=== PATIENT | female | born 1945 | race Caucasian/White ===

== ENCOUNTER 2024-01-22 11:44 | Inpatient (IN) | payer OTHER ==
[~2024-01-22] VITALS: Ht 157.5 cm; Wt 59.8 kg
[~2024-01-22 11:44] MED LIST: HYDR50TA47 PO; TIMO0.5S28 EACHEYE
[2024-01-22 13:30] VITALS: BP 207/104; PULSE 85; PULSE 89; RESP 18; TEMP 98.7; O2SAT 96
[2024-01-22] MEDS ORDERED: MORPHINE SULFATE INJ 2 MG/ml SYRG IV PRN ×2 (13:45→14:00)
[2024-01-22] MEDS ORDERED: NITROGLYCERIN 0.4 MG SL TAB SL PRN (13:45)
[2024-01-22 14:18] LABS: Basophils # (auto) 0 10 ^3/uL (0-0.2); Basophils % (auto) 0.2 % (0.0-2.0); Eosinophils # (auto) 0 10 ^3/uL (0-0.8); Eosinophils % (auto) 0.1 % (0.0-7.0); Hematocrit 37.2 % (36.0-46.0); Hemoglobin 12.7 g/dL (12.2-16.2); Lymphocytes # (auto) 0.6 10 ^3/uL (0.4-5.4); Mean Corpuscular Hemoglobin 30.9 pg (28.0-32.0); Mean Corpuscular Hgb Conc. 34.1 g/dL (32.0-36.0); Mean Corpuscular Volume 90.7 fL (80.0-100.0); Monocytes # (auto) 0.4 10 ^3/uL (0-1.3); Monocytes % (auto) 3.7 % (0.0-12.0); Neutrophils # (auto) 10.2 10 ^3/uL (1.6-8.6); Nucleated Red Blood Cells % 0.1 %; Platelet Count (auto) 296 10^3/uL (140-450); Red Cell Distribution Width 13.4 % (11.8-14.3); White Blood Cell 11.2 10^3/uL (4.4-10.8)
[2024-01-22] MEDS ORDERED: CLON0.1T PO (14:30)
[2024-01-22] MEDS ORDERED: LOSA-535 PO (14:30)
[2024-01-22] MEDS ORDERED: LISI40TA16 PO (14:30)
[2024-01-22 14:36] LABS: Alanine Aminotransferase 13 U/L (7-40); Albumin 4.9 g/dL (3.2-4.8); Alkaline Phosphatase 103 U/L (46-116); Anion Gap 8 (5-15); Aspartate Aminotransferase 16 U/L (13-40); BUN/Creatinine Ratio 11.5 (10.0-20.0); Bilirubin, Total 0.6 mg/dL (0.2-1.0); Blood Urea Nitrogen 11 mg/dL (9-23); Calcium 9.9 mg/dL (8.7-10.4); Carbon Dioxide 26 mmol/L (20-31); Chloride 106 mmol/L (98-107); Glucose 154 mg/dL (74-106); Lipase 34 U/L (12-53); Potassium 3.8 mmol/L (3.5-5.1); Sodium 140 mmol/L (136-145); Total Protein 7.1 g/dL (5.7-8.2)
[2024-01-22 14:55] LABS: Triglycerides 91 mg/dL (< 150)
[2024-01-22 14:56] LABS: LDL Cholesterol 108 mg/dL (< 100)
[2024-01-22] MEDS: ONDANSETRON HCL 4 MG/2 ML VIAL IV PRN (14:56)
[2024-01-22 14:57] LABS: Cholesterol 169 mg/dL (< 200); HDL Cholesterol 45 mg/dL (40-59)
[2024-01-22] MEDS ORDERED: hydrALAZINE HCL 20 MG/ML VL IV ONE (15:15)
[2024-01-22] MEDS: ENALAPRILAT 1.25 MG/ML-1ML VIAL IV PRN (15:29)
[2024-01-22 16:35] VITALS: BP 208/115; PULSE 93; RESP 16; TEMP 98.9; O2SAT 94
[2024-01-22] MEDS: cloNIDine HCL 0.1 MG TAB PO SCH ×2 (17:15→22:06)
[2024-01-22 18:15] LABS: Urine Bacteria None Seen /hpf (None Seen)
[2024-01-22 18:29] LABS: Urine Blood Negative /uL (Negative); Urine Clarity Clear (Clear); Urine Color Colorless (Yellow); Urine Protein, UAD TRACE (Negative); Urine Urobilinogen Normal (Negative); Urine WBC 7 /hpf (0 - 5); Urine pH 7.5 (5.0-9.0)
[2024-01-22 18:38] LABS: COVID19 ANTIGEN SOFIA FIA NEGATIVE (NEGATIVE)
[2024-01-22] MEDS: ENOXAPARIN SOD 60 MG/0.6 ML SYRINGE SC SCH (18:44)
[2024-01-22 20:00] VITALS: PULSE 112; PULSE 94; RESP 18; O2SAT 94
[2024-01-22] MEDS ORDERED: ENALAPRILAT 1.25 MG/ML-1ML VIAL IV PRN (21:15)
[2024-01-22 22:00] VITALS: BP 216/113; PULSE 94; RESP 18; TEMP 99.1; O2SAT 94
[2024-01-22] MEDS: ATORVASTATIN 20 MG TAB PO SCH (22:00)
[2024-01-22] MEDS ORDERED: cloNIDine HCL 0.1 MG TAB PO SCH ×3 (22:00)
[2024-01-22] MEDS: PANTOPRAZOLE 40 MG/10 ML VIAL INJ IV SCH (22:12)
[2024-01-22] MEDS: hydrALAZINE HCL 20 MG/ML VL IV ONE (22:42)
[2024-01-22] MEDS: SODIUM CHLORIDE 0.9% 1,000 ML IV SCH (22:56)
[2024-01-23] VITALS (8 sets, daily range): BP systolic 96–197; BP diastolic 54–98; PULSE 65–111; RESP 16–18; TEMP 98.1–99; O2SAT 94–98
--- NOTE | 2024-01-23 00:34 | DVHHP2 ---
Admitting Diagnosis: Chest pain, status post fall History of Present Illness History Source: Patient Exam Limitations: No limitations HPI Mrs. Liberty Aguilera is a 78 yo female with a history of hypertension. Patient [place] [facility] [place] Patient had presented at [facility] [place] with a chief complaint of blood in stool status post fall x 1 week ago. Patient was found to have positive troponin levels, elevated blood pressure. Patient had reported during her fall she hit her head on the floor and the following day she had a second fall which she fell on her left side. Patient CT head wo contrast resulted : no acute intracranial abnormality, Chest x ray: no acute intrathoracic abnormality. bilateral lower lobe atelectasis. Troponin levels 0.030 x2, 0.050, 0.120. Patient denies chest pain, dyspnea, headaches, dizziness, blurry vision, abdominal pain, diarrhea, constipation, dysuria, hematuria, melena. Home Meds Reported Medications Lisinopril (Lisinopril) 40 Mg Tab, 40 MG PO DAILY for 30 Days, MG 01/22/24 Clonidine Hydrochloride (Clonidine Hcl) 0.1 Mg Tab, 0.1 MG PO BID for 30 Days, MG 01/22/24 Losartan Potassium (Losartan Potassium) 100 Mg Tab, 100 MG PO DAILY for 30 Days, MG 01/22/24 Past Medical History Cardiac: HTN Pulmonary: No pertinent Hx Central Nervous System: No pertinent Hx GI: No pertinent Hx Hemotology/Oncology: No pertinent Hx Hepatobiliary: No pertinent Hx Psychiatric: No pertinent Hx Musculoskeletal: No pertinent Hx Rheumotologic: No pertinent Hx Infectious Disease: No peritnent Hx ENT: No pertinent Hx Renal/: No pertinent Hx Endocrine: No pertinent Hx Dermatology: No pertinent Hx Patient Family History: Patient reports no known family medical history. Smoker: No Hx (Negative) Alocohol: None Drugs: None Domestic Violence: Neg Review of Systems Constitutional: No symptom reported Ears, Nose, & Throat: No symptom reported Eyes: No symptom reported Pulmonary/Respiratory: No symptom reported Cardiovascular: No symptom reported Gastrointestinal: No symptom reported Genitourinary: No symptom reported Musculoskeletal: No symptom reported Skin: No symptom reported Psychiatric: No symptom reported Endocrine: No symptom reported Hemotologic/Lymphatic: No symptom reported H&P Exam Vital Signs Vital Signs Date Time Temp Pulse Resp B/P (MAP) Pulse Ox O2 Delivery O2 Flow Rate FiO2 11/2/24 23:06 148/72 01/22/24 22:00 99.1 94 18 94 99.1 01/22/24 13:30 Room Air* 0 21 General Appeara: Well developed, Well nourished, Normal Appearance Head Exam: Normal inspection Neck Exam: Normal inspection, Non-tender, Normal alignment Eye Exam: bilateral eye Normal inspection, bilateral eye PERRL, bilateral eye EOMI Ear Exam: bilateral ear Auricle normal Nasal Exam: Normal inspection Mouth: Normal Inspection Pulmonary/Respiratory: Normal inspection, Normal breath sounds, Chest non- tender, Lungs clear Cardiovascular/Chest: Normal inspection, Regular rate, Normal Rhythm Peripheral Pulses: 2+ dorsalis pedis (R), 2+ dorsalis pedis (L), 2+ Radial (R), 2+ Radial (L) Abdominal Exam: Normal bowel sounds, Soft, No tenderness Rectal Exam: Deferred [employer] Exam: Normal hearing, Normal speech, PERRL Neuro/Mental St: Alert, Oriented Appearance: Appropriate appearance, Appropriate insight Eye contact/ Speech: Cooperative, Good eye contact, Normal speech Thoughts/Psych: Normal thought pattern Skin Exam: Normal inspection, Normal color, Warm/dry Labs/Xrays Labs Test 01/22/24 18:15 01/22/24 18:00 01/22/24 17:53 01/22/24 14:05 Range/Units SARS-CoV-2 Antigen (Rapid) Negative NEGATIVE Urine Color Colorless Yellow Urine Clarity Clear Clear Urine pH 7.5 5.0-9.0 Urine Specific [place] 1.010 1.001-1.035 Urine Protein Trace H Negative Urine Ketones 1+ H Negative Urine Blood Negative Negative /uL Urine Nitrite Negative Negative Urine Bilirubin Negative Negative Urine Urobilinogen Normal Negative mg/dL Urine Leukocyte Esterase 1+ Negative /uL Urine RBC 4 0 - 4 /hpf Urine WBC 7 0 - 5 /hpf Urine Squamous Epithelial Cells Few <5 /hpf Urine Bacteria None seen None Seen /hpf Urine Glucose 3+ H Normal mg/dL Troponin I High Sensitivity 216 *H </=34 ng/L White Blood Count 11.2 H 4.4-10.8 10^3/uL Red Blood Count 4.10 4.0-5.20 10^6/uL Hemoglobin 12.7 12.2-16.2 g/dL Hematocrit 37.2 36.0-46.0 % Mean Corpuscular Volume 90.7 80.0-100.0 fL Mean Corpuscular Hemoglobin 30.9 28.0-32.0 pg Mean Corpuscular Hemoglobin Concent 34.1 32.0-36.0 g/dL Red Cell Distribution Width 13.4 11.8-14.3 % Platelet Count 296 140-450 10^3/uL Mean Platelet Volume 8.9 6.9-10.8 fL Neutrophils (%) (Auto) 91.0 H 37.0-80.0 % Lymphocytes (%) (Auto) 5.0 L 10.0-50.0 % Monocytes (%) (Auto) 3.7 0.0-12.0 % Eosinophils (%) (Auto) 0.1 0.0-7.0 % Basophils (%) (Auto) 0.2 0.0-2.0 % Neutrophils # (Auto) 10.2 H 1.6-8.6 10 ^3/uL Lymphocytes # (Auto) 0.6 0.4-5.4 10 ^3/uL Monocytes # (Auto) 0.4 0-1.3 10 ^3/uL Eosinophils # (Auto) 0 0-0.8 10 ^3/uL Basophils # (Auto) 0 0-0.2 10 ^3/uL Nucleated Red Blood Cells 0.1 % Sodium Level 140 136-145 mmol/L Potassium Level 3.8 3.5-5.1 mmol/L Chloride Level 106 98-107 mmol/L Carbon Dioxide Level 26 20-31 mmol/L Anion Gap 8 5-15 Blood Urea Nitrogen 11 9-23 mg/dL Creatinine 0.96 0.550-1.02 mg/dL Glomerular Filtration Rate Calc 61 >90 mL/min BUN/Creatinine Ratio 11.5 10.0-20.0 Serum Glucose 154 H 74-106 mg/dL Hemoglobin A1c 6.0 H <5.7 % A1C Calcium Level 9.9 8.7-10.4 mg/dL Total Bilirubin 0.6 0.2-1.0 mg/dL Aspartate Amino Transferase (AST) 16 13-40 U/L Alanine Aminotransferase (ALT) 13 7-40 U/L Alkaline Phosphatase 103 46-116 U/L Total Protein 7.1 5.7-8.2 g/dL Albumin 4.9 H 3.2-4.8 g/dL Triglycerides Level 91 < 150 mg/dL Cholesterol Level 169 < 200 mg/dL LDL Cholesterol 108 H < 100 mg/dL HDL Cholesterol 45 40-59 mg/dL Lipase 34 12-53 U/L Assessment/Plan Problem List: (1) NSTEMI (non-ST elevated myocardial infarction) (2) Hypertension Plan 78 yo female with known history of hypertension presents to the hospital as a transfer [place] [facility] [place]. 1. NSTEMI 2. Hypertension 3. UTI Admit Telemetry Cardiology consultation, echocardiogram Lovenox 1m/kg SC every 12 hours Lipitor , ASA Serial troponin levels IV antibiotic Ceftriaxone Discussed all above with patient who verbalized agreement and understanding of care plan. All questions were answered. Discussed assessment and care plan with supervising MD. Plan discussed with: Patient, Other Code Visit Code Visit Total Time (mins): 45 Additional Comments Additional Comments Additional Comments Patient is evaluated by nurse practitioner. Patient seen by me as well and chart is reviewed. I agree with the nurse practitioner's evaluation, documentation, assessment and care plan as outlined. MARIANN MILLARD Jan 23, 2024 00:34 CECILIA BLAND MD Jan 23, 2024 16:19
[2024-01-23 07:50] LABS: Basophils # (auto) 0 10 ^3/uL (0-0.2); Basophils % (auto) 0.3 % (0.0-2.0); Eosinophils # (auto) 0 10 ^3/uL (0-0.8); Eosinophils % (auto) 0.4 % (0.0-7.0); Hematocrit 32.3 % (36.0-46.0); Lymphocytes # (auto) 1.4 10 ^3/uL (0.4-5.4); Mean Corpuscular Hemoglobin 31.1 pg (28.0-32.0); Mean Corpuscular Hgb Conc. 34.2 g/dL (32.0-36.0); Mean Corpuscular Volume 91.1 fL (80.0-100.0); Monocytes % (auto) 8.9 % (0.0-12.0); Neutrophils # (auto) 8.5 10 ^3/uL (1.6-8.6); Neutrophils % (auto) 77.4 % (37.0-80.0); Nucleated Red Blood Cells % 0.1 %; Platelet Count (auto) 293 10^3/uL (140-450); Red Blood Cells 3.55 10^6/uL (4.0-5.20); Red Cell Distribution Width 13.4 % (11.8-14.3)
[2024-01-23 08:03] LABS: INR 1.05 (0.9-1.15); Partial Thromboplastin Time 29.1 SEC (24.5-34.5); Prothrombin Time 11.1 sec (9.3-11.8)
[2024-01-23 08:10] LABS: Alanine Aminotransferase 13 U/L (7-40); Albumin 4.1 g/dL (3.2-4.8); Alkaline Phosphatase 87 U/L (46-116); Anion Gap 9 (5-15); Aspartate Aminotransferase 16 U/L (13-40); BUN/Creatinine Ratio 14.9 (10.0-20.0); Blood Urea Nitrogen 20 mg/dL (9-23); Calcium 9.5 mg/dL (8.7-10.4); Carbon Dioxide 25 mmol/L (20-31); Chloride 105 mmol/L (98-107); Glucose 103 mg/dL (74-106); Potassium 3.5 mmol/L (3.5-5.1); Sodium 139 mmol/L (136-145)
[2024-01-23 08:11] LABS: Bilirubin, Total 0.6 mg/dL (0.2-1.0); Total Protein 6.2 g/dL (5.7-8.2)
[2024-01-23] MEDS ORDERED: ENOXAPARIN SOD 40 MG/0.4 ML SYRINGE SC SCH (10:00)
[2024-01-23] MEDS ORDERED: LOSARTAN POTASSIUM 50 MG TAB PO SCH ×2 (10:00)
[2024-01-23] MEDS: LISINOPRIL 20 MG TAB PO SCH (10:12)
[2024-01-23] MEDS: ASPirin 81 mg TAB PO SCH (10:12)
[2024-01-23 13:08] LABS: Lipase 36 U/L (12-53)
[2024-01-23] MEDS ORDERED: ENALAPRILAT 1.25 MG/ML-1ML VIAL IV PRN (15:45)
[2024-01-23] MEDS ORDERED: hydrALAZINE HCL 20 MG/ML VL IV PRN (15:45)
--- NOTE | 2024-01-23 18:16 | DVHINCON2 ---
Date of service: Jan 23, 2024 History of Present Illness 78 yo F with hx of HTN ,[place] [facility] [place] pt had chest pain on wednesday and sever htn above 200, then pt had a fall and after this fall had 3 blback b owel movements. she feels the black BM is 2/2 to her fall however. ecg showed diffuse st depression Past Medical History reviewed Family History: Patient reports no known family medical history. Allergies: Coded Allergies: Penicillins (Verified Allergy, Mild, 01/22/24) Home Meds Reported Medications Lisinopril (Lisinopril) 40 Mg Tab, 40 MG PO DAILY for 30 Days, MG 01/22/24 Clonidine Hydrochloride (Clonidine Hcl) 0.1 Mg Tab, 0.1 MG PO BID for 30 Days, MG 01/22/24 Losartan Potassium (Losartan Potassium) 100 Mg Tab, 100 MG PO DAILY for 30 Days, MG 01/22/24 Current Medications Current Medications Medications (Trade) Dose Ordered Sig/Rafy Route PRN Reason Start Time Stop Time Status Last Admin Pantoprazole Sodium (Protonix) 40 mg BID IV 01/22/24 22:00 01/23/24 10:12 Enoxaparin Sodium (Lovenox) 40 mg DAILY SC 01/23/24 10:00 01/22/24 15:45 DC Aspirin 81 mg DAILY PO 01/23/24 10:00 01/23/24 10:12 Atorvastatin Calcium (Lipitor) 40 mg HS PO 01/22/24 22:00 Clonidine HCl (Catapres Tablet) 0.2 mg BID PO 01/22/24 22:00 01/22/24 17:11 DC Losartan Potassium (Cozaar Tablet) 100 mg DAILY PO 01/23/24 10:00 01/23/24 16:00 DC Lisinopril (Zestril Tablet) 40 mg DAILY PO 01/23/24 10:00 01/23/24 15:45 DC 01/23/24 10:12 Clonidine HCl (Catapres Tablet) 0.2 mg BID PO 01/22/24 22:00 Cancel Losartan Potassium (Cozaar Tablet) 100 mg DAILY PO 01/23/24 10:00 01/22/24 18:36 DC Clonidine HCl (Catapres Tablet) 0.1 mg BID PO 01/22/24 22:00 01/22/24 21:18 DC Clonidine HCl (Catapres Tablet) 0.1 mg TID PO 01/22/24 22:00 01/23/24 14:25 Enalaprilat (Vasotec Injection) 5 mg Q4HR PRN IV SPB >150 01/22/24 21:15 01/23/24 15:42 DC Sodium Chloride 1,000 ml @ 75 mls/hr [id number] IV 01/22/24 21:30 01/22/24 22:56 Nicardipine HCl 250 ml @ 50 mls/hr Q5H IV 01/22/24 22:00 01/22/24 23:38 DC Enalaprilat (Vasotec Injection) 2.5 mg Q6HP PRN IV SBP>160 01/23/24 15:45 01/23/24 15:45 DC Losartan Potassium (Cozaar Tablet) 50 mg BID PO 01/23/24 22:00 Hydralazine HCl (Apresoline Injection) 10 mg Q6HP PRN IV SBP>150 01/23/24 15:45 Minoxidil (Loniten Tablet) 5 mg HS PO 01/23/24 22:00 Amlodipine Besylate (Norvasc Tablet) 10 mg DAILY PO 01/24/24 10:00 UNV Review of Systems 10 pt ros otherwise negative Vital Signs Vital Signs Date Time Temp Pulse Resp B/P (MAP) Pulse Ox O2 Delivery O2 Flow Rate FiO2 01/23/24 17:00 98.1 88 17 174/88 (116) 95 98.1 01/23/24 08:00 Room Air* 0 21 Physical Exam nad s1 s2 rrr ctab soft nt/nd no edema Labs/Diagnostic Data Labs Test 01/23/24 06:19 01/23/24 06:15 01/22/24 18:15 01/22/24 18:00 Range/Units White Blood Count 11.0 H 4.4-10.8 10^3/uL Red Blood Count 3.55 L 4.0-5.20 10^6/uL Hemoglobin 11.0 L 12.2-16.2 g/dL Hematocrit 32.3 #L 36.0-46.0 % Mean Corpuscular Volume 91.1 80.0-100.0 fL Mean Corpuscular Hemoglobin 31.1 28.0-32.0 pg Mean Corpuscular Hemoglobin Concent 34.2 32.0-36.0 g/dL Red Cell Distribution Width 13.4 11.8-14.3 % Platelet Count 293 140-450 10^3/uL Mean Platelet Volume 9.5 6.9-10.8 fL Neutrophils (%) (Auto) 77.4 37.0-80.0 % Lymphocytes (%) (Auto) 13.0 10.0-50.0 % Monocytes (%) (Auto) 8.9 0.0-12.0 % Eosinophils (%) (Auto) 0.4 0.0-7.0 % Basophils (%) (Auto) 0.3 0.0-2.0 % Neutrophils # (Auto) 8.5 1.6-8.6 10 ^3/uL Lymphocytes # (Auto) 1.4 0.4-5.4 10 ^3/uL Monocytes # (Auto) 1.0 0-1.3 10 ^3/uL Eosinophils # (Auto) 0 0-0.8 10 ^3/uL Basophils # (Auto) 0 0-0.2 10 ^3/uL Nucleated Red Blood Cells 0.1 % Prothrombin Time 11.1 9.3-11.8 sec Prothrombin Time INR 1.05 0.9-1.15 Activated Partial Thromboplast Time 29.1 24.5-34.5 SEC Sodium Level 139 136-145 mmol/L Potassium Level 3.5 3.5-5.1 mmol/L Chloride Level 105 98-107 mmol/L Carbon Dioxide Level 25 20-31 mmol/L Anion Gap 9 5-15 Blood Urea Nitrogen 20 9-23 mg/dL Creatinine 1.34 #H 0.550-1.02 mg/dL Glomerular Filtration Rate Calc 41 >90 mL/min BUN/Creatinine Ratio 14.9 10.0-20.0 Serum Glucose 103 74-106 mg/dL Calcium Level 9.5 8.7-10.4 mg/dL Total Bilirubin 0.6 0.2-1.0 mg/dL Aspartate Amino Transferase (AST) 16 13-40 U/L Alanine Aminotransferase (ALT) 13 7-40 U/L Alkaline Phosphatase 87 46-116 U/L Troponin I High Sensitivity 205 *H </=34 ng/L Total Protein 6.2 5.7-8.2 g/dL Albumin 4.1 3.2-4.8 g/dL Lipase 36 12-53 U/L POC Glucose 118 H 70-106 mg/dl SARS-CoV-2 Antigen (Rapid) Negative NEGATIVE Urine Color Colorless Yellow Urine Clarity Clear Clear Urine pH 7.5 5.0-9.0 Urine Specific [place] 1.010 1.001-1.035 Urine Protein Trace H Negative Urine Ketones 1+ H Negative Urine Blood Negative Negative /uL Urine Nitrite Negative Negative Urine Bilirubin Negative Negative Urine Urobilinogen Normal Negative mg/dL Urine Leukocyte Esterase 1+ Negative /uL Urine RBC 4 0 - 4 /hpf Urine WBC 7 0 - 5 /hpf Urine Squamous Epithelial Cells Few <5 /hpf Urine Bacteria None seen None Seen /hpf Urine Glucose 3+ H Normal mg/dL Test 01/22/24 14:05 Range/Units Hemoglobin A1c 6.0 H <5.7 % A1C Triglycerides Level 91 < 150 mg/dL Cholesterol Level 169 < 200 mg/dL LDL Cholesterol 108 H < 100 mg/dL HDL Cholesterol 45 40-59 mg/dL Assessment uncontrolled HTN r/o GI bleed recent mechanical fall nstemi wtih ecg changes and diffuse st depressions Plan/Recommendation pt may need LHC eventually given above findings, after informed consent pt agrees if pt needs URgent GI scope that is life threatening, clearly pt should proceed preserved lvef on echo lvef 70% hold asa for now watch hgb, IVF as needed very high risk pt Plan discussed with: Patient SON HICKS MD Jan 23, 2024 18:15
[2024-01-23] MEDS: amLODIPine BESYLATE 5 MG TAB PO ONE (18:34)
[2024-01-23] MEDS: cloNIDine HCL 0.1 MG TAB PO SCH (21:54)
[2024-01-23] MEDS: LOSARTAN POTASSIUM 50 MG TAB PO SCH (21:55)
[2024-01-23] MEDS: MINOXIDIL 2.5 MG TAB PO SCH (21:56)
[2024-01-24] VITALS (7 sets, daily range): BP systolic 79–123; BP diastolic 41–75; PULSE 54–78; RESP 16–20; TEMP 97.9–99.8; O2SAT 94–97
[2024-01-24] MEDS ORDERED: TRAZ-228 PO (04:22)
[2024-01-24] MEDS ORDERED: OMEP20TA PO (04:22)
--- NOTE | 2024-01-24 06:50 | DVH ---
CHEST RADIOGRAPH Indication:Protocol Technique: Single frontal view of the chest was obtained Comparison: None FINDINGS: Lines and Tubes: None Lungs: No focal consolidation. Pleura: No effusion. No pneumothorax. Cardiomediastinal contours: Unremarkable Bones: No acute osseous abnormality. IMPRESSION: 1. No acute cardiopulmonary disease.
[2024-01-24 07:12] LABS: Basophils # (auto) 0 10 ^3/uL (0-0.2); Basophils % (auto) 0.5 % (0.0-2.0); Eosinophils # (auto) 0.2 10 ^3/uL (0-0.8); Eosinophils % (auto) 2.7 % (0.0-7.0); Hematocrit 30.6 % (36.0-46.0); Hemoglobin 10.5 g/dL (12.2-16.2); Lymphocytes # (auto) 1.2 10 ^3/uL (0.4-5.4); Lymphocytes % (auto) 15.5 % (10.0-50.0); Mean Corpuscular Hemoglobin 31.2 pg (28.0-32.0); Mean Corpuscular Hgb Conc. 34.2 g/dL (32.0-36.0); Mean Corpuscular Volume 91.2 fL (80.0-100.0); Monocytes # (auto) 0.7 10 ^3/uL (0-1.3); Monocytes % (auto) 8.7 % (0.0-12.0); Neutrophils # (auto) 5.7 10 ^3/uL (1.6-8.6); Neutrophils % (auto) 72.6 % (37.0-80.0); Nucleated Red Blood Cells % 0.1 %; Platelet Count (auto) 265 10^3/uL (140-450); Red Blood Cells 3.35 10^6/uL (4.0-5.20); Red Cell Distribution Width 13.1 % (11.8-14.3); White Blood Cell 7.9 10^3/uL (4.4-10.8)
--- NOTE | 2024-01-24 08:45 | DVHSR ---
APPROVED REPORT EXAM: LIMITED Two-dimensional and M-mode echocardiogram with Doppler and color Doppler. Blood Pressure: 96/54 mmHg INDICATION Chest Pain RISK FACTORS Height: 5' 2", Weight: 127 DIMENSIONS LVDd3.7 (3.8-5.7cm)LA (2D)3.3 (1.9-4.0cm)Aortic Root3.1 (2.0-3.7cm) LVDs2.7 (2.5-4.0cm)LA (MM) (1.9-4.0cm)Aortic Cusp Exc1.8 (1.5-2.0cm) EF (%) 55.0 (55-70%)Rt. Atrium3.3 (1.9-4.0cm)Asc. Aorta cm IVSd1.1 (0.7-1.1cm)RV (D) (1.8-2.4cm) PWd1.0 (0.7-1.1cm) Mitral Valve MitralMitral Stenosis E wave0.80m/sMV Mean GR.mmHg A wave1.40m/sMV Peak GR.mmHg E/A ratio0.62D MVAcm2 Aortic Valve Aortic ValveAortic Stenosis V11.70m/Mario Mean GR.9mmHg V22.00m/Mario Peak GR.16mmHg LVOT Diameter2.0 (1.8-2.4cm)Doppler AVA2.67cm2 Pulmonic Valve V21.20m/s Tricuspid Valve TR Velocity2.10m/s [id number] Conclusion lvef 70% by visual estimate mild to moderate LVH hyperdyanmic LV with minor lvot gradient trivial to smal lpericardial effusion noted, no HD comrpomsie left atrium enalrged mild
[2024-01-24] MEDS: amLODIPine BESYLATE 5 MG TAB PO SCH (10:00)
--- NOTE | 2024-01-24 11:37 | DVH ---
US RENAL ARTERY COMP HISTORY: Hypertension. COMPARISON: None TECHNIQUE: Transverse and longitudinal grayscale and color and spectral Doppler images were obtained of the kidneys and bladder. FINDINGS: Right kidney: Size: 10.5 cm Cortical thickness: Normal Echogenicity: Normal Stones: None Masses: None Hydronephrosis: None Ureters: Not seen. Other: None Right renal doppler: - Renal artery velocity: 92 cm/s (normal <180 cm/s) - Renal artery resistive index: 0.73 (normal <0.8) - Normal renal aortic velocity ratio (<3.5) Left kidney: Size: 10.6 cm Cortical thickness: Normal Echogenicity: Normal Stones: None Masses: None Hydronephrosis: None Ureters: Not seen. Other: None Left renal doppler: - Renal artery velocity: 89.1 cm/s (normal <180 cm/s) - Renal artery resistive index: 0.76 (normal <0.8) - Normal renal aortic velocity ratio (<3.5) Bladder: Normal IMPRESSION: Normal renal ultrasound with no evidence of renal artery stenosis.
--- NOTE | 2024-01-24 12:13 | DVHPN2 ---
Progress Note Date Seen: Jan 24, 2024 Medical Necessity Reason Pt with a Central, PICC or Fol: No Subjective Other Systems: awaiting gi consult hgb dropped Objective vital signs Vital Sign Date Time Temp Pulse Resp B/P (MAP) Pulse Ox O2 Delivery O2 Flow Rate FiO2 01/24/24 10:00 110/70 01/24/24 08:00 97.9 54 18 97 97.9 01/24/24 08:00 Room Air* 0 21 Total Intake and Output 01/23/24 01/23/24 01/24/24 15:00 23:00 07:00 Intake Total 800 ml 1520 ml 1260 ml Balance 800 ml 1520 ml 1260 ml medications Current Medications Medications Dose Ordered Sig/Rafy Route Start Time Stop Time Status Last Admin Dose Admin Nitroglycerin 0.4 mg Q5MINP PRN SL 01/22/24 13:45 Morphine Sulfate 2 mg Q30M PRN IV 01/22/24 13:45 Ondansetron HCl 4 mg Q4HPRN PRN IV 01/22/24 14:00 01/23/24 14:26 4 MG Morphine Sulfate 2 mg Q4HPRN PRN IV 01/22/24 14:00 Pantoprazole Sodium 40 mg BID IV 01/22/24 22:00 01/24/24 10:30 40 MG Aspirin 81 mg DAILY PO 01/23/24 10:00 01/23/24 10:12 81 MG Atorvastatin Calcium 40 mg HS PO 01/22/24 22:00 01/23/24 21:56 40 MG Clonidine HCl 0.2 mg BID PO 01/22/24 22:00 Cancel Sodium Chloride 1,000 ml @ 75 mls/hr [id number] IV 01/22/24 21:30 01/24/24 01:57 75 MLS/HR Losartan Potassium 50 mg BID PO 01/23/24 22:00 01/23/24 21:55 50 MG Hydralazine HCl 10 mg Q6HP PRN IV 01/23/24 15:45 Minoxidil 5 mg HS PO 01/23/24 22:00 01/23/24 21:56 5 MG Amlodipine Besylate 10 mg DAILY PO 01/24/24 10:00 Clonidine HCl 0.2 mg TID PO 01/23/24 22:00 01/23/24 21:54 0.2 MG Examination: GENERAL:Abnormal, HEENT:Abnormal, LUNGS:Abnormal, CVS:Abnormal, ABDOMEN:Abnormal laboratory and microbiology Laboratory Tests 01/24/24 06:21 01/23/24 06:19 Test 01/23/24 06:19 Range/Units Serum Glucose 103 74-106 mg/dL Problem List/Assessment/Plan Problem List/Assessment/Plan nstemi severe LVH severe htn GI bleed fu GI recs dc lovenox consider LHC once stable, possibly tomorrow proceed to GI scope francesco if indicated Plan discussed with: Patient My Orders My Orders Orders - SON HICKS MD Procedure Category Date Status Time Amlodipine Tablet PHA 01/24/24 In Process (Norvasc Tablet) 10:00 Cl Coronary Cath W/O CL 01/23/24 Logged [facility] 18:12 Licensed Professional Counselor: Obtain ORDERS 01/23/24 Transmitted Consent For: 18:12 Clonidine Hcl Tablet PHA 01/23/24 In Process (Catapres Tablet) 22:00 Cl Left Heart Cath CL 01/24/24 Logged 07:29 Clear Liq Diet DIET 01/24/24 Transmitted Lunch Date of Service: Jan 24, 2024 Billing Provider: SON HICKS MD Common Visit Codes: NOT BILLABLE SON HICKS MD Jan 24, 2024 12:13
[2024-01-24] MEDS: cloNIDine HCL 0.1 MG TAB PO SCH (14:00)
[2024-01-24 14:33] LABS: % Iron Saturation 34.5 % (15-50)
--- NOTE | 2024-01-24 17:56 | DVHPN2 ---
Progress Note - Dictate Date Seen: Jan 24, 2024 Medical Necessity Reason Pt with a Central, PICC or Fol: No Subjective Clinically stable. No complaints of chest pain or shortness for breath. Patient is evaluated by surety bond agent recommending GI evaluation prior to proceeding with a heart catheterization. Hemoglobin is stable and no evidence of acute abrupt GI bleeding. vital signs Vital Sign Date Time Temp Pulse Resp B/P (MAP) Pulse Ox O2 Delivery O2 Flow Rate FiO2 01/24/24 16:00 98.6 70 19 107/60 (76) 97 98.6 01/24/24 08:00 Room Air* 0 21 Total Intake and Output 01/23/24 01/23/24 01/24/24 15:00 23:00 07:00 Intake Total 800 ml 1520 ml 1260 ml Balance 800 ml 1520 ml 1260 ml medications Current Medications Medications Dose Ordered Sig/Rafy Route Start Time Stop Time Status Last Admin Dose Admin Nitroglycerin 0.4 mg Q5MINP PRN SL 01/22/24 13:45 Morphine Sulfate 2 mg Q30M PRN IV 01/22/24 13:45 Ondansetron HCl 4 mg Q4HPRN PRN IV 01/22/24 14:00 01/23/24 14:26 4 MG Morphine Sulfate 2 mg Q4HPRN PRN IV 01/22/24 14:00 Pantoprazole Sodium 40 mg BID IV 01/22/24 22:00 01/24/24 10:30 40 MG Atorvastatin Calcium 40 mg HS PO 01/22/24 22:00 01/23/24 21:56 40 MG Clonidine HCl 0.2 mg BID PO 01/22/24 22:00 Cancel Sodium Chloride 1,000 ml @ 75 mls/hr [id number] IV 01/22/24 21:30 01/24/24 01:57 75 MLS/HR Losartan Potassium 50 mg BID PO 01/23/24 22:00 01/23/24 21:55 50 MG Hydralazine HCl 10 mg Q6HP PRN IV 01/23/24 15:45 Minoxidil 5 mg HS PO 01/23/24 22:00 01/23/24 21:56 5 MG Clonidine HCl 0.1 mg TID PO 01/24/24 14:00 objective alert awake oriented x3. Comfortable in bed without distress. HEENT neck supple no JVD. Heart regular rate and rhythm S1 and S2. Lungs without rales wheezes. Abdomen soft nontender positive bowel sounds. Extremities no edema positive pulses. laboratory and microbiology Laboratory Tests 01/24/24 06:21 01/23/24 06:19 Test 01/23/24 06:19 Range/Units Serum Glucose 103 74-106 mg/dL Assessment/Plan To continue with the present management as she is on. We will DC the Lovenox as anticoagulation. Wait for GI consultation. Otherwise further clinical management per clinical course and recommendations from the consultants. Discussed with the patient and nurse regarding care plan. Problems(with codes): (1) Hypertension (2) NSTEMI (non-ST elevated myocardial infarction) (3) Anemia Plan discussed with: Patient, Other CECILIA BLAND MD Jan 24, 2024 17:56
--- NOTE | 2024-01-24 19:20 | DVHINCON2 ---
Date of service: Jan 24, [address] Swan and Dr Mortensen Reason for Consultation Possible GI bleed History of Present Illness Mrs. Liberty Aguilera is a 78 yo female with a history of hypertension. Patient is a transfer [place] [facility] [place] Patient had presented at [facility] with a chief complaint of blood in stool / dark stool status post fall x 1 week ago. Pt uses aspirin intermittently. Patient was found to have positive troponin levels, elevated blood pressure. Patient had reported during her fall she hit her head on the floor and the following day she had a second fall which she fell on her left side. Patient CT head wo contrast resulted : no acute intracranial abnormality, Chest x ray: no acute intrathoracic abnormality. bilateral lower lobe atelectasis. Troponin levels 0.030 x2, 0.050, 0.120. Patient denies chest pain, dyspnea, headaches, dizziness, blurry vision, abdominal pain, diarrhea, constipation, dysuria, hematuria, melena. Past Medical History HTN Past Surgical History None Family History: Patient reports no known family medical history. Allergies: Coded Allergies: Penicillins (Verified Allergy, Mild, 01/22/24) Home Meds Reported Medications Timolol Maleate (Timolol Maleate Ophthalmi) 0.5 % Leann, 1 DROP EACHEYE QAM for 50 Days, #5 01/24/24 Hydralazine Hcl (Hydralazine Hcl) 50 Mg Tab, 1 TAB PO BID for 90 Days, #180 01/24/24 Omeprazole (Gnp Omeprazole) 20 Mg Tab, 20 MG PO DAILY, TAB 01/24/24 Trazodone Hcl (Trazodone Hcl) 100 Mg Tab, 100 MG PO BID, MG 01/24/24 Clonidine Hydrochloride (Clonidine Hcl) 0.1 Mg Tab, 0.1 MG PO BID for 30 Days, MG 01/22/24 Losartan Potassium (Losartan Potassium) 100 Mg Tab, 100 MG PO DAILY for 30 Days, MG 01/22/24 Discontinued Reported Medications Lisinopril (Lisinopril) 40 Mg Tab, 40 MG PO DAILY for 30 Days, MG 01/22/24 Current Medications Current Medications Medications (Trade) Dose Ordered Sig/Rafy Route PRN Reason Start Time Stop Time Status Last Admin Losartan Potassium (Cozaar Tablet) 50 mg BID PO 01/23/24 22:00 01/23/24 21:55 Minoxidil (Loniten Tablet) 5 mg HS PO 01/23/24 22:00 01/23/24 21:56 Amlodipine Besylate (Norvasc Tablet) 10 mg DAILY PO 01/24/24 10:00 01/24/24 13:30 DC Clonidine HCl (Catapres Tablet) 0.2 mg TID PO 01/23/24 22:00 01/24/24 13:30 DC 01/23/24 21:54 Clonidine HCl (Catapres Tablet) 0.1 mg TID PO 01/24/24 14:00 Vital Signs Vital Signs Date Time Temp Pulse Resp B/P (MAP) Pulse Ox O2 Delivery O2 Flow Rate FiO2 01/24/24 16:00 98.6 70 19 107/60 (76) 97 98.6 01/24/24 08:00 Room Air* 0 21 Physical Exam nad; obese s1 s2 rrr ctab soft nt/nd no edema Labs/Diagnostic Data Labs Test 01/24/24 19:09 01/24/24 06:21 01/23/24 06:19 01/23/24 06:15 Range/Units White Blood Count 7.9 # 4.4-10.8 10^3/uL Red Blood Count 3.35 L 4.0-5.20 10^6/uL Hemoglobin 10.5 L 12.2-16.2 g/dL Hematocrit 30.6 L 36.0-46.0 % Mean Corpuscular Volume 91.2 80.0-100.0 fL Mean Corpuscular Hemoglobin 31.2 28.0-32.0 pg Mean Corpuscular Hemoglobin Concent 34.2 32.0-36.0 g/dL Red Cell Distribution Width 13.1 11.8-14.3 % Platelet Count 265 140-450 10^3/uL Mean Platelet Volume 9.2 6.9-10.8 fL Neutrophils (%) (Auto) 72.6 37.0-80.0 % Lymphocytes (%) (Auto) 15.5 10.0-50.0 % Monocytes (%) (Auto) 8.7 0.0-12.0 % Eosinophils (%) (Auto) 2.7 0.0-7.0 % Basophils (%) (Auto) 0.5 0.0-2.0 % Neutrophils # (Auto) 5.7 1.6-8.6 10 ^3/uL Lymphocytes # (Auto) 1.2 0.4-5.4 10 ^3/uL Monocytes # (Auto) 0.7 0-1.3 10 ^3/uL Eosinophils # (Auto) 0.2 0-0.8 10 ^3/uL Basophils # (Auto) 0 0-0.2 10 ^3/uL Nucleated Red Blood Cells 0.1 % Iron Level 88 50-170 ug/dL Total Iron Binding Capacity 255 250-425 ug/dL Percent Iron Saturation 34.5 15-50 % Ferritin 140.9 10-291 ng/mL Prothrombin Time 11.1 9.3-11.8 sec Prothrombin Time INR 1.05 0.9-1.15 Activated Partial Thromboplast Time 29.1 24.5-34.5 SEC Sodium Level 139 136-145 mmol/L Potassium Level 3.5 3.5-5.1 mmol/L Chloride Level 105 98-107 mmol/L Carbon Dioxide Level 25 20-31 mmol/L Anion Gap 9 5-15 Blood Urea Nitrogen 20 9-23 mg/dL Creatinine 1.34 #H 0.550-1.02 mg/dL Glomerular Filtration Rate Calc 41 >90 mL/min BUN/Creatinine Ratio 14.9 10.0-20.0 Serum Glucose 103 74-106 mg/dL Calcium Level 9.5 8.7-10.4 mg/dL Total Bilirubin 0.6 0.2-1.0 mg/dL Aspartate Amino Transferase (AST) 16 13-40 U/L Alanine Aminotransferase (ALT) 13 7-40 U/L Alkaline Phosphatase 87 46-116 U/L Troponin I High Sensitivity 205 *H </=34 ng/L Total Protein 6.2 5.7-8.2 g/dL Albumin 4.1 3.2-4.8 g/dL Lipase 36 12-53 U/L POC Glucose 118 H 70-106 mg/dl Test 01/22/24 18:15 01/22/24 18:00 01/22/24 14:05 Range/Units SARS-CoV-2 Antigen (Rapid) Negative NEGATIVE Urine Color Colorless Yellow Urine Clarity Clear Clear Urine pH 7.5 5.0-9.0 Urine Specific [place] 1.010 1.001-1.035 Urine Protein Trace H Negative Urine Ketones 1+ H Negative Urine Blood Negative Negative /uL Urine Nitrite Negative Negative Urine Bilirubin Negative Negative Urine Urobilinogen Normal Negative mg/dL Urine Leukocyte Esterase 1+ Negative /uL Urine RBC 4 0 - 4 /hpf Urine WBC 7 0 - 5 /hpf Urine Squamous Epithelial Cells Few <5 /hpf Urine Bacteria None seen None Seen /hpf Urine Glucose 3+ H Normal mg/dL Hemoglobin A1c 6.0 H <5.7 % A1C Triglycerides Level 91 < 150 mg/dL Cholesterol Level 169 < 200 mg/dL LDL Cholesterol 108 H < 100 mg/dL HDL Cholesterol 45 40-59 mg/dL Renal artery USG IMPRESSION: Normal renal ultrasound with no evidence of renal artery stenosis. Problems(with codes): (1) Anemia (2) NSTEMI (non-ST elevated myocardial infarction) (3) Hypertension Plan/Recommendation Plan At this time patient is not showing signs of any active GI bleeding in fact she has not had a bowel movement for 2-3 days Protonix 40 mg IV q.12 hours Stool for occult blood Monitor labs; supportive care for now I will be standing by if the patient needs any urgent endoscopic workup Hold Lovenox and patient can proceed with cardiac catheterization tomorrow and me use anticoagulation if necessary Plan discussed with: Patient, Daughter, Other (Dr Swan) SEBASTIAN CAMPOVERDE MD Jan 24, 2024 19:20
[2024-01-25] VITALS (9 sets, daily range): BP systolic 100–151; BP diastolic 49–76; PULSE 55–70; RESP 15–20; TEMP 98.1–98.3; O2SAT 92–100
[2024-01-25 07:37] LABS: Chloride 110 mmol/L (98-107); Potassium 3.2 mmol/L (3.5-5.1); Sodium 142 mmol/L (136-145)
[2024-01-25 07:38] LABS: Anion Gap 7 (5-15); Carbon Dioxide 25 mmol/L (20-31)
[2024-01-25 07:39] LABS: Calcium 8.4 mg/dL (8.7-10.4)
[2024-01-25 07:44] LABS: BUN/Creatinine Ratio 15.7 (10.0-20.0); Blood Urea Nitrogen 14 mg/dL (9-23); Glucose 99 mg/dL (74-106)
[2024-01-25 07:49] LABS: Basophils # (auto) 0 10 ^3/uL (0-0.2); Basophils % (auto) 0.5 % (0.0-2.0); Eosinophils # (auto) 0.2 10 ^3/uL (0-0.8); Hematocrit 30.2 % (36.0-46.0); Hemoglobin 10.2 g/dL (12.2-16.2); Lymphocytes # (auto) 0.9 10 ^3/uL (0.4-5.4); Lymphocytes % (auto) 16.7 % (10.0-50.0); Mean Corpuscular Hemoglobin 30.7 pg (28.0-32.0); Mean Corpuscular Hgb Conc. 33.6 g/dL (32.0-36.0); Mean Corpuscular Volume 91.3 fL (80.0-100.0); Monocytes # (auto) 0.5 10 ^3/uL (0-1.3); Monocytes % (auto) 9.3 % (0.0-12.0); Neutrophils # (auto) 3.7 10 ^3/uL (1.6-8.6); Neutrophils % (auto) 69.5 % (37.0-80.0); Platelet Count (auto) 258 10^3/uL (140-450); Red Blood Cells 3.31 10^6/uL (4.0-5.20); Red Cell Distribution Width 13.2 % (11.8-14.3); White Blood Cell 5.4 10^3/uL (4.4-10.8)
[2024-01-25] MEDS: SODIUM CHL 0.9% 0 ML ONE (12:25)
[2024-01-25] MEDS: ANGIOMAX 250 MG VIAL IV ONE (12:25)
[2024-01-25] MEDS: VERAPAMIL 2.5MG/ML INJ 2ML VIAL IV ONE (12:25)
[2024-01-25] MEDS: fentaNYL CITRATE 100 MCG/2 ML VL ONE (12:25)
[2024-01-25] MEDS: MIDAZOLAM HCL 2MG/2ML 2ml VIAL (1mg/ml) ONE (12:26)
[2024-01-25] MEDS: IODIXANOL 320MG/ML 100ML BTL IV ONE ×2 (12:26)
[2024-01-25] MEDS: LIDOCAINE 2%HCL (LOCAL ANESTH.) INJ 20ML MDV ONE (12:26)
--- NOTE | 2024-01-25 12:28 | DVHPN2 ---
Progress Note Date Seen: Jan 25, 2024 Medical Necessity Reason Pt with a Central, PICC or Fol: No Subjective Patient reports: Feels better Other Systems: cath was - Objective vital signs Vital Sign Date Time Temp Pulse Resp B/P (MAP) Pulse Ox O2 Delivery O2 Flow Rate FiO2 01/25/24 09:00 98.1 66 20 113/53 (73) 95 98.1 01/25/24 08:00 Room Air* 0 21 Total Intake and Output 01/24/24 01/24/24 01/25/24 15:00 23:00 07:00 Intake Total 800 ml 1450 ml Balance 800 ml 1450 ml medications Current Medications Medications Dose Ordered Sig/Arfy Route Start Time Stop Time Status Last Admin Dose Admin Nitroglycerin 0.4 mg Q5MINP PRN SL 01/22/24 13:45 Morphine Sulfate 2 mg Q30M PRN IV 01/22/24 13:45 Ondansetron HCl 4 mg Q4HPRN PRN IV 01/22/24 14:00 01/23/24 14:26 4 MG Morphine Sulfate 2 mg Q4HPRN PRN IV 01/22/24 14:00 Pantoprazole Sodium 40 mg BID IV 01/22/24 22:00 01/25/24 09:06 40 MG Atorvastatin Calcium 40 mg HS PO 01/22/24 22:00 01/24/24 21:14 40 MG Clonidine HCl 0.2 mg BID PO 01/22/24 22:00 Cancel Sodium Chloride 1,000 ml @ 75 mls/hr [id number] IV 01/22/24 21:30 01/25/24 06:54 75 MLS/HR Losartan Potassium 50 mg BID PO 01/23/24 22:00 01/24/24 21:14 50 MG Hydralazine HCl 10 mg Q6HP PRN IV 01/23/24 15:45 Minoxidil 5 mg HS PO 01/23/24 22:00 01/23/24 21:56 5 MG Clonidine HCl 0.1 mg TID PO 01/24/24 14:00 01/25/24 05:35 0.1 MG Examination: GENERAL:Abnormal, HEENT:Abnormal, LUNGS:Abnormal, CVS:Abnormal, ABDOMEN:Abnormal laboratory and microbiology Laboratory Tests 01/25/24 06:07 Test 01/25/24 06:07 Range/Units Serum Glucose 99 74-106 mg/dL Problem List/Assessment/Plan Problem List/Assessment/Plan nstemi severe LVH severe htn GI bleed fu GI recs dc lovenox consider LHC once stable, possibly tomorrow proceed to GI scope francesco if indicated ---fu gi recs cath showed no severe cad no asa dc home when medically stable Plan discussed with: Patient My Orders My Orders Orders - SON HICKS MD Procedure Category Date Status Time Cl Left Heart Cath CL 01/25/24 Taken 08:26 Date of Service: Jan 25, 2024 Billing Provider: SON HICKS MD Common Visit Codes: NOT BILLABLE SON HICKS MD Jan 25, 2024 12:28
--- NOTE | 2024-01-25 12:29 | DVHOP2 ---
Operative Report Operative Report CARDIAC AUTO BODY MECHANIC APPRENTICE PROCEDURE REPORT [place], [place] Date of Service: 01/25/24 Fluxer: Son Hicks MD PROCEDURES PERFORMED: Coronary angiogram, left heart catheterization, conscious sedation administration and supervision, less than 15 minutes; fluoroscopy use and interpretation. PREOPERATIVE DIAGNOSES: nstemi POSTOP DIAGNOSIS: severe LVH, nstemi DESCRIPTION OF PROCEDURE: The patient or appropriate family signed informed consent understanding the risks, benefits and alternatives of the procedure, they wished to proceed. The patient was brought to the cardiac microbiology lab analyst in n.p.o. state. The patient was prepped in a sterile fashion. Sedation was used per cardiac cath protocol. I administered 2 mL of 2% lidocaine to the right wrist. With an antegrade front wall puncture. I cannulated the right radial artery and placed a 6-[place] Glidesheath slender. Next, an intra-arterial spasmolytic was administered. Next, a - 5 [place] catheter and were used for coronary angiogram and LVEDP measurement and pressure pullback. At the completion of procedure, all guides and wires were removed, and there were no immediate complications. FINDINGS: RCA: Moderate vessel off the right sinus of Valsalva, there is no severe flow limiting stenosis. it is non dominant vessel 30% prox RCA lesion LEFT MAIN: Moderate size left main, it bifurcates into LAD and circumflex. CIRCUMFLEX: Moderate caliber vessel coming off the left main with no flow limiting stenosis. LAD: LAD is a moderate caliber vessel coming of the left main. no sevee stenos is. mild distal plaque noted LVEDP of 6 mmhg CONCLUSIONS: 1. mild CAD PLAN: Aggressive risk factor modification and medical management for the patient. SON HICKS MD Jan 25, 2024 12:29
[2024-01-25] MEDS ORDERED: OMEP20TA PO (12:53)
[2024-01-25] MEDS ORDERED: LOSA-535 PO (12:53)
[2024-01-25] MEDS ORDERED: HYDR50TA47 PO (12:53)
[2024-01-25] MEDS ORDERED: CLON0.1T PO (12:53)
--- NOTE | 2024-01-25 12:55 | DVHDS2 ---
Discharge Summary Date of Admission Jan 22, 2024 at 12:59 Date of Discharge: Jan 25, 2024 Labs/Diagnostic Data: Laboratory Results Test 01/25/24 06:07 01/24/24 19:09 01/24/24 06:21 01/23/24 06:19 White Blood Count 5.4 10^3/uL (4.4-10.8) Red Blood Count 3.31 10^6/uL (4.0-5.20) Hemoglobin 10.2 g/dL (12.2-16.2) Hematocrit 30.2 % (36.0-46.0) Mean Corpuscular Volume 91.3 fL (80.0-100.0) Mean Corpuscular Hemoglobin 30.7 pg (28.0-32.0) Mean Corpuscular Hemoglobin Concent 33.6 g/dL (32.0-36.0) Red Cell Distribution Width 13.2 % (11.8-14.3) Platelet Count 258 10^3/uL (140-450) Mean Platelet Volume 9.3 fL (6.9-10.8) Neutrophils (%) (Auto) 69.5 % (37.0-80.0) Lymphocytes (%) (Auto) 16.7 % (10.0-50.0) Monocytes (%) (Auto) 9.3 % (0.0-12.0) Eosinophils (%) (Auto) 4.0 % (0.0-7.0) Basophils (%) (Auto) 0.5 % (0.0-2.0) Neutrophils # (Auto) 3.7 10 ^3/uL (1.6-8.6) Lymphocytes # (Auto) 0.9 10 ^3/uL (0.4-5.4) Monocytes # (Auto) 0.5 10 ^3/uL (0-1.3) Eosinophils # (Auto) 0.2 10 ^3/uL (0-0.8) Basophils # (Auto) 0 10 ^3/uL (0-0.2) Nucleated Red Blood Cells 0.0 % Sodium Level 142 mmol/L (136-145) Potassium Level 3.2 mmol/L (3.5-5.1) Chloride Level 110 mmol/L (98-107) Carbon Dioxide Level 25 mmol/L (20-31) Anion Gap 7 (5-15) Blood Urea Nitrogen 14 mg/dL (9-23) Creatinine 0.89 mg/dL (0.550-1.02) Glomerular Filtration Rate Calc 67 mL/min (>90) BUN/Creatinine Ratio 15.7 (10.0-20.0) Serum Glucose 99 mg/dL (74-106) Calcium Level 8.4 mg/dL (8.7-10.4) Stool Occult Blood Positive (Negative) Stool Occult Blood Sample #3 (Negative) Iron Level 88 ug/dL (50-170) Total Iron Binding Capacity 255 ug/dL (250-425) Percent Iron Saturation 34.5 % (15-50) Ferritin 140.9 ng/mL (10-291) Prothrombin Time 11.1 sec (9.3-11.8) Prothrombin Time INR 1.05 (0.9-1.15) Activated Partial Thromboplast Time 29.1 SEC (24.5-34.5) Total Bilirubin 0.6 mg/dL (0.2-1.0) Aspartate Amino Transferase (AST) 16 U/L (13-40) Alanine Aminotransferase (ALT) 13 U/L (7-40) Alkaline Phosphatase 87 U/L (46-116) Troponin I High Sensitivity 205 ng/L (</=34) Total Protein 6.2 g/dL (5.7-8.2) Albumin 4.1 g/dL (3.2-4.8) Lipase 36 U/L (12-53) Test 01/23/24 06:15 01/22/24 18:15 01/22/24 18:00 01/22/24 14:05 POC Glucose 118 mg/dl (70-106) SARS-CoV-2 Antigen (Rapid) Negative (NEGATIVE) Urine Color Colorless (Yellow) Urine Clarity Clear (Clear) Urine pH 7.5 (5.0-9.0) Urine Specific [place] 1.010 (1.001-1.035) Urine Protein Trace (Negative) Urine Ketones 1+ (Negative) Urine Blood Negative /uL (Negative) Urine Nitrite Negative (Negative) Urine Bilirubin Negative (Negative) Urine Urobilinogen Normal mg/dL (Negative) Urine Leukocyte Esterase 1+ /uL (Negative) Urine RBC 4 /hpf (0 - 4) Urine WBC 7 /hpf (0 - 5) Urine Squamous Epithelial Cells Few /hpf (<5) Urine Bacteria None seen /hpf (None Seen) Urine Glucose 3+ mg/dL (Normal) Hemoglobin A1c 6.0 % A1C (<5.7) Triglycerides Level 91 mg/dL (< 150) Cholesterol Level 169 mg/dL (< 200) LDL Cholesterol 108 mg/dL (< 100) HDL Cholesterol 45 mg/dL (40-59) Other Laboratory Tests 01/25/24 06:07 Brief Hx & Hospital Course: Mrs. Liberty Aguilera is a 78 yo female with a history of hypertension. Patient is a transfer [place] [facility] [place] Patient had presented at [facility] with a chief complaint of blood in stool status post fall x 1 week ago. Patient was found to have positive troponin levels, elevated blood pressure. Patient had reported during her fall she hit her head on the floor and the following day she had a second fall which she fell on her left side. Patient CT head wo contrast resulted : no acute intracranial abnormality, Chest x ray: no acute intrathoracic abnormality. bilateral lower lobe atelectasis. Troponin levels 0.030 x2, 0.050, 0.120. Patient denies chest pain, dyspnea, headaches, dizziness, blurry vision, abdominal pain, diarrhea, constipation, dysuria, hematuria, melena. She is admitted and evaluated by social worker aide as well as e mail system administrator. Patient had a labile high blood pressure during the hospitalization felt causing some of her symptoms. Therefore her blood pressure medications have been adjusted and her blood pressure has improved. Patient had a coronary angiogram showed a mild coronary artery disease recommended medical therapy. Patient's hemoglobin dropped 2 g from 12-10. Occult blood was positive. Therefore she was room by e mail system administrator recommended medical therapy with Protonix. Patient did not have any evidence of acute GI bleeding. She is advised to follow up outpatient with a e mail system administrator for further evaluation and workup of her anemia. Her chest pain symptoms resolved. Blood pressure is controlled. Hemoglobin is stable. Having had necessary workup and evaluations and feeling better it is felt she could be safely discharged home. However patient is advised to continue the medications as prescribed and have a close follow up with the PCP and consultants. Patient verbalized understanding over hospital diagnosis, treatment she received, discharge medications, discharge instructions and agreed with the discharge follow-up plan of care. Consults/Reason for consult Conclusion lvef 70% by visual estimate mild to moderate LVH hyperdyanmic LV with minor lvot gradient trivial to smal lpericardial effusion noted, no HD comrpomsie left atrium enalrged mild SIGNED BY: SALAZAR HICKS MD Operations or Procedures Operative Report CARDIAC GEOSPATIAL ANALYST PROCEDURE REPORT [place], [place] Date of Service: 01/25/24 Facilities Technician: Salazar Hicks MD PROCEDURES PERFORMED: Coronary angiogram, left heart catheterization, conscious sedation administration and supervision, less than 15 minutes; fluoroscopy use and interpretation. PREOPERATIVE DIAGNOSES: nstemi POSTOP DIAGNOSIS: severe LVH, nstemi DESCRIPTION OF PROCEDURE: The patient or appropriate family signed informed consent understanding the risks, benefits and alternatives of the procedure, they wished to proceed. The patient was brought to the cardiac manager labor delivery in n.p.o. state. The patient was prepped in a sterile fashion. Sedation was used per cardiac cath protocol. I administered 2 mL of 2% lidocaine to the right wrist. With an antegrade front wall puncture. I cannulated the right radial artery and placed a 6-[place] Glidesheath slender. Next, an intra-arterial spasmolytic was administered. Next, a - 5 [place] catheter and were used for coronary angiogram and LVEDP measurement and pressure pullback. At the completion of procedure, all guides and wires were removed, and there were no immediate complications. FINDINGS: RCA: Moderate vessel off the right sinus of Valsalva, there is no severe flow limiting stenosis. it is non dominant vessel 30% prox RCA lesion LEFT MAIN: Moderate size left main, it bifurcates into LAD and circumflex. CIRCUMFLEX: Moderate caliber vessel coming off the left main with no flow limiting stenosis. LAD: LAD is a moderate caliber vessel coming of the left main. no sevee stenosis. mild distal plaque noted LVEDP of 6 mmhg CONCLUSIONS: 1. mild CAD PLAN: Aggressive risk factor modification and medical management for the patient. SALAZAR HICKS MD Jan 25, 2024 12:29 Condition at Discharge: Stable Final Diagnosis/Problems List Malignant hypertension, anemia of chronic disease, status post normal coronary angiogram Discharge Disposition: Home Discharge Instruct/Medications Diet: Consistent carbohydrate, Cardiac 2g Na,low cholest Activity: No Restrictions, As Tolerated Follow Up/Referral: Dr. Shawn Toledo e mail system administrator for further workup and evaluation of your anemia in 3-4 weeks. Primary care physician after 2 weeks for blood pressure management. Medications: As prescribed and for discharge home medication reconciliation list Changed Medications: Clonidine Hydrochloride (Clonidine Hcl) 0.1 Mg Tab 0.1 MG PO TID, #60 MG 1 Refill (Changed from: BID; Removed Days; Refills: ) Continued Medications: Hydralazine Hcl (Hydralazine Hcl) 50 Mg Tab 1 TAB PO BID, #90 TAB (This prescription has been renewed) Losartan Potassium (Losartan Potassium) 100 Mg Tab 100 MG PO DAILY, #90 MG (This prescription has been renewed) Omeprazole (Gnp Omeprazole) 20 Mg Tab 20 MG PO DAILY, #60 TAB (This prescription has been renewed) Timolol Maleate (Timolol Maleate Ophthalmi) 0.5 % Leann 1 DROP EACHEYE QAM for 50 Days, #5 Trazodone Hcl (Trazodone Hcl) 100 Mg Tab 100 MG PO BID, MG Discharge Statement: "Patient was advised to return to the ER or call 911 if any headaches, dizziness, shortness of breath, chest pain, abdominal pain, bleeding, fevers, or worsening of medical condition. Patient was counseled about treatment plan, medications, possible side effects, patientverbalized understanding. All questions were answered to the best of my ability. This discharge took greater then 30 minutes in planning, reviewing documentation, counseling the patient, and discussing with other team members." ASSESSMENT ASSESSMENT Assessment Malignant hypertension, anemia of chronic disease, status post normal coronary angiogram CECILIA BLAND MD Jan 25, 2024 12:55
--- NOTE | 2024-01-25 20:04 | DVHPN2 ---
Progress Note - Dictate Date Seen: Jan 25, 2024 (Late entry Patient seen at bedside at 3:00 p.m.) Medical Necessity Reason Pt with a Central, PICC or Fol: No Subjective Patient seen at bedside She has no further episodes of GI bleeding or melena; stools were Hemoccult positive Patient underwent cardiac catheterization today which showed mild coronary artery disease vital signs Vital Sign Date Time Temp Pulse Resp B/P (MAP) Pulse Ox O2 Delivery O2 Flow Rate FiO2 01/25/24 15:00 128/74 01/25/24 13:17 60 15 100 01/25/24 09:00 98.1 98.1 01/25/24 08:00 Room Air* 0 21 Total Intake and Output 01/24/24 01/24/24 01/25/24 15:00 23:00 07:00 Intake Total 800 ml 1450 ml Balance 800 ml 1450 ml medications Current Medications Medications Dose Ordered Sig/Rafy Route Start Time Stop Time Status Last Admin Dose Admin Clonidine HCl 0.2 mg BID PO 01/22/24 22:00 Cancel objective nad; obese s1 s2 rrr ctab soft nt/nd no edema laboratory and microbiology Laboratory Tests 01/25/24 06:07 Test 01/25/24 06:07 Range/Units Serum Glucose 99 74-106 mg/dL Problems(with codes): (1) Anemia (2) NSTEMI (non-ST elevated myocardial infarction) (3) Hypertension Prognosis Plan I advised the patient a possible endoscopy and elective colonoscopy Patient states at this time her bleeding has resolved Discharge planning is in progress Maintained on Protonix 40 mg p.o. daily DC aspirin and NSAIDs Outpatient follow up with me to schedule elective panendoscopy Patient stated she will follow up with me in my [place] office Dietary Evaluation Review Comments: [place] eat while she is allowed to have a cardiac diet Expected Outcomes/Goals: gradual weight loss. Plan discussed with: Patient, Other (Nurse) SEBASTIAN CAMPOVERDE MD Jan 25, 2024 20:04
== END 2024-01-25 17:05 | disposition home or self-care (01) | DRG 280 ==
LOC: TELE-WESTW 12:59
PROVIDERS: ADMIT Hospitalist; ATTEND Hospitalist
PROC: 4A023N7 Measurement of Cardiac Sampling and Pressure, Left Heart, Percutaneous Approach (ICD-10-PCS; principal; 2024-01-25)
PROC: B211YZZ Fluoroscopy of Multiple Coronary Arteries using Other Contrast (ICD-10-PCS; 2024-01-25)
DX: I21.4 Non-ST elevation (NSTEMI) myocardial infarction (principal); N17.0 Acute kidney failure with tubular necrosis; K92.2 Gastrointestinal hemorrhage, unspecified; N39.0 Urinary tract infection, site not specified; Z20.822 Contact with and (suspected) exposure to COVID-19; I10 Essential (primary) hypertension; I25.10 Atherosclerotic heart disease of native coronary artery without angina pectoris; D63.8 Anemia in other chronic diseases classified elsewhere; Z79.899 Other long term (current) drug therapy; I51.7 Cardiomegaly
CPT/HCPCS: 36415; 71045; 80048; 80053; 80061; 81001; 82270; 82728; 82962; 83036; 83540; 83550; 83690; 84484; 85025; 85610; 85730; 87426; 93306; 93458; 93975; 99152; G0378; J2250; J2405; J2470; Q9967